=== PATIENT | male | born 1990 | race Two or more races ===

== ENCOUNTER → 2019-12-01 | Emergency (ER) | payer OTHER ==
[~2019-12-01] VITALS: Ht 167.6 cm; Wt 83.5 kg
[2019-12-01 16:24] VITALS: BP 114/64
== END | disposition home or self-care (01) ==
LOC: ER 16:03 → EDBD 16:03
DX: S01.511A Laceration without foreign body of lip, initial encounter (principal); S01.112A Laceration without foreign body of left eyelid and periocular area, initial encounter; X58.XXXA Exposure to other specified factors, initial encounter; Y93.89 Activity, other specified; Y92.89 Other specified places as the place of occurrence of the external cause; Y99.8 Other external cause status